=== PATIENT | female | born 1935 | race Asian ===

== ENCOUNTER 2021-11-11 19:43 | Emergency (ER) | payer OTHER, MEDICAID ==
[~2021-11-11] VITALS: Ht 157.5 cm; Wt 54.5 kg
[2021-11-11 20:07] LABS: BASOPHILS % (AUTO) 0.9 % (0.0-2.0); HEMATOCRIT 36.9 % (36-46); HEMOGLOBIN 12.2 g/dL (12.0-16.0); LYMPHOCYTES # (AUTO) 3.3 K/uL (1.0-4.8); LYMPHOCYTES % (AUTO) 34.4 % (22.0-44.0); MEAN CORPUSCULAR HEMOGLOBIN 29.3 pg (26.0-34.0); MEAN CORPUSCULAR VOLUME 89 fL (80-100); MONOCYTES # (AUTO) 0.9 K/uL (0.1-1.0); MONOCYTES % (AUTO) 9.8 % (2.0-9.0); NEUTROPHILS % (AUTO) 52.9 % (40.0-70.0); PLATELET COUNT (AUTO) 278 K/uL (150-450); RED BLOOD CELL COUNT(AUTO) 4.15 MIL/uL (4.00-5.20)
[2021-11-11 20:16] LABS: CALCIUM, TOTAL 9.7 mg/dL (8.8-10.5); CREATININE 1.01 mg/dL (0.60-1.30); POTASSIUM 3.3 mmol/L (3.5-5.1)
[2021-11-11] MEDS ORDERED: PRAV10TA39 PO (20:18)
[2021-11-11] MEDS ORDERED: LOSA-370 PO (20:18)
[2021-11-11] MEDS ORDERED: WARF2.5T38 PO (20:18)
[2021-11-11] MEDS ORDERED: DILT120C43 PO (20:18)
[2021-11-11] MEDS ORDERED: METO50 PO (20:18)
[2021-11-11] MEDS ORDERED: FAMO20 PO (20:18)
[2021-11-11 20:21] LABS: ALBUMIN 3.4 g/dL (3.4-5.0); BILIRUBIN,TOTAL 0.3 mg/dL (0.1-1.0); INR 1.2 (0.9-1.1); TOTAL PROTEIN, SERUM 8.1 g/dL (6.4-8.2)
[2021-11-11] MEDS ORDERED: IOHEXOL 350 MG/ML 100 ML VIAL ONE (20:23)
[2021-11-11] MEDS ORDERED: SODIUM CHLORIDE 0.9% 100 ML ONE ×2 (20:23→22:58)
[2021-11-11 20:36] LABS: COVID AG,FIA SOURCE NASOPHARYNGEAL
[2021-11-11] MEDS ORDERED: LABETALOL HCL 5 MG/ML 20 ML VIAL IVP ONE (21:30)
[2021-11-11] MEDS ORDERED: ALTEPLASE PER STROKE PROTOCOL CLINICAL ONE (21:45)
[2021-11-11] MEDS ORDERED: WATER FOR INJECTION STERILE IV ONE ×2 (21:50→21:55)
[2021-11-11] MEDS ORDERED: ALTEPLASE IV ONE ×2 (21:50→21:55)
[2021-11-11] MEDS ORDERED: RAPID SEQUENCE KIT [RSI] 1 EACH KIT MISC ONE (22:57)
[2021-11-11] MEDS ORDERED: ROCURONIUM BROMIDE 10 MG/ML 5 ML VIAL ONE (22:58)
[2021-11-11] MEDS ORDERED: ETOMIDATE 2 MG/ML 10 ML VIAL ONE (23:05)
[2021-11-11] MEDS ORDERED: PROPOFOL 1000 MG/ISO-OSM 100 ML ONE (23:15)
[2021-11-11 23:32] VITALS: BP 152/88
== END 2021-11-12 00:10 | disposition short-term general hospital (02) ==
LOC: EMS 19:45
DX: I63.9 Cerebral infarction, unspecified (principal); I10 Essential (primary) hypertension; Z88.1 Allergy status to other antibiotic agents; Z79.899 Other long term (current) drug therapy; Z20.822 Contact with and (suspected) exposure to COVID-19
CPT/HCPCS: 31500; 36415; 37195; 70450; 70496; 70498; 71045; 80053; 84484; 85025; 85610; 85730; 87426; 93005; 96374; 99291; 99292; J2704; J2997 ×2; J3490 ×3; J7050; Q9967